=== PATIENT | male | born 1985 | race Caucasian/White ===

== ENCOUNTER 2016-12-10 23:29 | Inpatient (IN) | payer SELFPAY ==
[~2016-12-10] VITALS: Ht 180.3 cm; Wt 80.3 kg
[~2016-12-10 23:29] MED LIST: DOXY100T PO; SULF-154 PO
[2016-12-10 23:32] VITALS: BP 126/82; PULSE 126; RESP 19; TEMP 98.6; O2SAT 87
[2016-12-10] MEDS ORDERED: RESP: ALBUTEROL 2.5 MG/IPRATROPIUM 0.5 MG NEB (SCH) NEB ONE (23:45)
[2016-12-10] MEDS ORDERED: SODIUM CHLOR 0.9% 1000 ML INJ 1,000 ML IV ONE (23:45)
[2016-12-10 23:58] LABS: AUTOMATED NEUTROPHIL # 3.6 TH/MM3 (1.8-7.7); BASOPHIL # 0.1 TH/MM3 (0-0.2); BASOPHIL % 0.9 % (0.0-2.0); EOSINOPHIL # 0.2 TH/MM3 (0-0.4); EOSINOPHIL % 2.7 % (0.0-4.0); HEMO FLAGS DIFF FINAL; LYMPH % 30.2 % (9.0-44.0); LYMPHOCYTE # 1.9 TH/MM3 (1.0-4.8); MEAN CELL VOLUME 85.5 FL (80.0-100.0); MEAN CORPUSCULAR HEMOGLOBIN 29.3 PG (27.0-34.0); MEAN CORPUSCULAR HGB CONC 34.3 % (32.0-36.0); MONO % 9.3 % (0.0-8.0); NEUT % 56.9 % (16.0-70.0); PLATELET COUNT 215 TH/MM3 (150-450); RED BLOOD COUNT 4.91 MIL/MM3 (4.50-5.90); RED CELL DISTRIBUTION WIDTH 13.8 % (11.6-17.2); WHITE BLOOD COUNT 6.4 TH/MM3 (4.0-11.0)
[2016-12-11] VITALS (7 sets, daily range): BP systolic 94–123; BP diastolic 50–74; PULSE 87–121; RESP 16–22; TEMP 98.1–98.8; O2SAT 91–99
--- NOTE | 2016-12-11 | PD ---
HPI Chief Complaint: OD/ Ingestion Time Seen by Provider: 23:33 Travel History International Travel<30 days: No Contact w/Intl Traveler<30days: No Traveled to known affect area: No History of Present Illness HPI This is a 31-year-old male who presents to the emergency department having been found by his unresponsive after he took some sort of blue pill. EMS arrived and the patient had pinpoint pupils. He was being bag mask ventilated. He was given 2 mg of Narcan and then he regained consciousness. Patient denies any illicit substance use. He does have a remote history of IV drug use that he acknowledges. Right now he says he just doesn't feel "right", constant , moderate severity, with no associated shortness of breath or chest pain. PFSH Past Medical History Medical History: Denies Significant Hx Diminished Hearing: No Musculoskeletal: Yes (CHRONIC BACK PAIN) Tetanus Vaccination: Unknown Influenza Vaccination: No Past Surgical History Surgical History: No Previous Surgery Social History Alcohol Use: Yes (OCCASIONALLY) Tobacco Use: Yes (2-3 CIGARETTES A DAY) Substance Use: Yes (PT STATES HE QUIT) Allergies-Medications (Allergen,Severity, Reaction): Coded Allergies: No Known Allergies (Unverified , 12/10/16) Reported Meds & Prescriptions Reported Meds & Active Scripts Active No Active Prescriptions or Reported Medications Review of Systems Except as stated in HPI: all other systems reviewed are Neg Physical Exam Narrative GENERAL:Well appearing, no acute distress SKIN: Focused skin assessment warm and dry. HEAD: Atraumatic. Normocephalic. EYES: Pupils equal and round. No injection or drainage. ENT: Dry mucous membranes. NECK: Trachea midline. CARDIOVASCULAR: Regular rate and rhythm. No murmur appreciated. RESPIRATORY: Diffuse coarse breath sounds with expiratory wheezing, no tachypnea or accessory muscle use. GASTROINTESTINAL: Abdomen soft, non-tender, nondistended. MUSCULOSKELETAL: No obvious deformities. NEUROLOGICAL: Awake and alert. No obvious cranial nerve deficits. Moving all extremities. PSYCHIATRIC: Appropriate mood and affect; insight and judgment normal. Data Data Last Documented VS Vital Signs Date Time Temp Pulse Resp B/P Pulse Ox O2 Delivery O2 Flow Rate FiO2 12/11/16 02:25 121 19 94/50 91 Nasal Cannula 3 12/10/16 23:32 98.6 Orders Complete Blood Count With Diff (12/10/16 23:38) Comprehensive Metabolic Panel (12/10/16 23:38) ^ Insert Iv (12/10/16 23:38) Chest, Single Ap (12/10/16 ) Albuterol-Ipratropium Neb (Duoneb Neb) (12/10/16 23:45) Sodium Chlor 0.9% 1000 Ml Inj (Ns 1000 M (12/10/16 23:45) Acetaminophen (Tylenol) (12/11/16 01:00) Methylprednisolone So Succ Inj (Solumedr (12/11/16 01:30) Albuterol Neb (Albuterol Neb) (12/11/16 01:30) Ampicillin-Sulbactam Inj (Unasyn Inj) (12/11/16 02:45) Admit Order (Ed Use Only) (12/11/16 02:52) Labs Laboratory Tests Test 12/10/16 23:45 White Blood Count 6.4 TH/MM3 Red Blood Count 4.91 MIL/MM3 Hemoglobin 14.4 GM/DL Hematocrit 42.0 % Mean Corpuscular Volume 85.5 FL Mean Corpuscular Hemoglobin 29.3 PG Mean Corpuscular Hemoglobin 34.3 % Concent Red Cell Distribution Width 13.8 % Platelet Count 215 TH/MM3 Mean Platelet Volume 8.3 FL Neutrophils (%) (Auto) 56.9 % Lymphocytes (%) (Auto) 30.2 % Monocytes (%) (Auto) 9.3 % Eosinophils (%) (Auto) 2.7 % Basophils (%) (Auto) 0.9 % Neutrophils # (Auto) 3.6 TH/MM3 Lymphocytes # (Auto) 1.9 TH/MM3 Monocytes # (Auto) 0.6 TH/MM3 Eosinophils # (Auto) 0.2 TH/MM3 Basophils # (Auto) 0.1 TH/MM3 CBC Comment DIFF FINAL Differential Comment Sodium Level 145 MEQ/L Potassium Level 4.0 MEQ/L Chloride Level 109 MEQ/L Carbon Dioxide Level 29.4 MEQ/L Anion Gap 7 MEQ/L Blood Urea Nitrogen 17 MG/DL Creatinine 1.05 MG/DL Estimat Glomerular Filtration 81 ML/MIN Rate Random Glucose 160 MG/DL Calcium Level 7.7 MG/DL Total Bilirubin 0.3 MG/DL Aspartate Amino Transf 77 U/L (AST/SGOT) Alanine Aminotransferase 243 U/L (ALT/SGPT) Alkaline Phosphatase 82 U/L Total Protein 6.7 GM/DL Albumin 3.6 GM/DL MDM Medical Decision Making Medical Screen Exam Complete: Yes Emergency Medical Condition: Yes Interpretation(s) Afebrile, tachycardic, hypoxic No leukocytosis Mild transaminitis Chest x-ray: Bibasilar consolidation Differential Diagnosis Pneumonia, aspiration, electrolyte abnormality, opiate overdose Narrative Course This is a 31-year-old male who presents to the emergency department having likely had an accidental opiate overdose having received bag mask ventilation in the field Narcan. On arrival he was awake and alert but tachycardic and hypoxic. He was given bronchodilator treatments and some steroids in the setting of some wheezing. Chest x-ray demonstrates bibasilar pneumonia. He continued to be hypoxic despite aggressive respiratory management. I suspect the patient had an aspiration event. He'll be admitted to the hospital for close monitoring and antibiotics. Diagnosis Primary Impression: Opiate overdose Qualified Code: T40.601A - Opiate overdose, accidental or unintentional, initial encounter Additional Impression: Pneumonia Qualified Code: J69.0 - Aspiration pneumonia of both lower lobes, unspecified aspiration pneumonia type Admitting Information Admitting Physician Requests: Admit Additional Instructions: If you develop severe chest pain, shortness of breath, sweating, lightheadedness , dizziness or difficulty breathing return to the emergency department immediately. Followup with your primary care physician in 2-3 days if your symptoms are not resolved. Scripts No Active Prescriptions or Reported Meds Isis Amos MD Dec 11, 2016 00:00
[2016-12-11 00:18] LABS: ALT (GPT) 243 U/L (12-78); ANION GAP 7 MEQ/L (5-15); AST (GOT) 77 U/L (15-37); BICARBONATE 29.4 MEQ/L (21.0-32.0); BLOOD UREA NITROGEN 17 MG/DL (7-18); CHLORIDE 109 MEQ/L (98-107); GLOMERULAR FILTRATION RATE 81 ML/MIN (>89); SODIUM (NA) 145 MEQ/L (136-145)
[2016-12-11 00:21] LABS: ALKALINE PHOSPHATASE 82 U/L (45-117); TOTAL BILIRUBIN ADULT 0.3 MG/DL (0.2-1.0)
--- NOTE | 2016-12-11 00:33 | RADRPT ---
EXAM DATE/TIME: 12/10/2016 23:52 [facility] COMPARISON: No previous studies available for comparison. INDICATIONS : Cough. Congestion. MEDICAL HISTORY : None. SURGICAL HISTORY : None. ENCOUNTER: Initial ACUITY: 3 days PAIN SCORE: 6/10 LOCATION: Bilateral chest FINDINGS: The heart size is normal. There is increased density at the left base. There is minimal increased den sity at the right base. CONCLUSION: Bibasilar areas of suspected consolidation being much more prominent on the left. Stefano Martini MD on December 11, 2016 at 0:31 Board Certified Radiologist. This report was verified electronically.
[2016-12-11] MEDS ORDERED: ACETAMINOPHEN 500 MG CPLT PO ONE (01:00)
[2016-12-11] MEDS ORDERED: methylPREDNISolone SOD SUCC 125 MG/2 ML VIAL IV PUSH ONE (01:30)
[2016-12-11] MEDS: RESP: ALBUTEROL 2.5 MG/3 ML NEB (SCH) INH (01:44)
[2016-12-11] MEDS ORDERED: AMPICILLIN-SULBACTAM INJ 3 GM in SODIUM CHLORIDE 0.9% INJ 100 ML IV ONE (02:45)
[2016-12-11] MEDS ORDERED: SODIUM CHLOR 0.9% 1000 ML INJ 1,000 ML IV SCH (02:58)
[2016-12-11] MEDS ORDERED: RESP: ALBUTEROL 2.5 MG/IPRATROPIUM 0.5 MG NEB (PRN) NEB (03:00)
[2016-12-11] MEDS ORDERED: SODIUM CHLORIDE 0.9% FLUSH 10 ML FLUSH IV FLUSH PRN (03:00)
[2016-12-11] MEDS ORDERED: ONDANSETRON HCL 4 MG/2 ML VIAL IVP PRN (03:00)
[2016-12-11] MEDS ORDERED: BISACODYL 10 MG SUPP RECTAL PRN (03:00)
[2016-12-11] MEDS ORDERED: ACETAMINOPHEN 325 MG TAB PO PRN (03:00)
--- NOTE | 2016-12-11 05:19 | HHI.HP ---
HPI Service [facility] Primary Care Physician No Primary Care Physician Admission Diagnosis aspiration pneumonia, opiate overdose Diagnoses: (1) Opiate overdose Diagnosis: Principal (2) PNA (pneumonia) Diagnosis: Principal (3) Hypoxia Diagnosis: Principal (4) Tobacco abuse Diagnosis: Principal Travel History International Travel<30 Days: No Contact w/Intl Traveler <30 Da: No Traveled to Known Affected Are: No History of Present Illness This is a 31-year-old male with a PMH of Tobacco Abuse and h/o Substance Abuse was brought into the ER by EMS after found him unresponsive at home. Per girlfriend pt had taken a drug, "something called blue". Pt denies any ingestion. S/p Narcan 0.2mg by EMS w/ GCS 15. While in ER, pt noted to be hypoxic w/ O2 sat 88-89%on RA despite improved mental status. On arrival, BP 126/82, HR 126, O2 sat 87% on RA, Afebrile. Currently O2 sat 94% on 3L NC. CBC unremarkable. Chemistry with GFR 81. LFTs mildly elevated comparison to previous labs. CXR with bibasilar areas of consolidation. S/p Unasyn in ER. Review of Systems Except as stated in HPI: all other systems reviewed are Neg ROS: 14 point review of systems otherwise negative. Past Family Social History Past Medical History PMH: Tobacco Abuse and h/o Substance Abuse Past Surgical History PAST SURGICAL HISTORY: None Allergies: Coded Allergies: No Known Allergies (Unverified , 12/10/16) Family History PAST FAMILY HISTORY: Reviewed. No h/o DM or CAD Social History PAST SOCIAL HISTORY: Occasional alcohol. Smokes daily. History of substance abuse. Physical Exam Vital Signs Vital Signs Date Time Temp Pulse Resp B/P Pulse Ox O2 Delivery O2 Flow Rate FiO2 12/11/16 04:53 101 19 108/71 94 Nasal Cannula 3 12/11/16 03:30 Nasal Cannula 3.00 12/11/16 02:25 121 19 94/50 91 Nasal Cannula 3 12/10/16 23:39 121 19 93 Nasal Cannula 3 12/10/16 23:32 98.6 126 19 126/82 87 Physical Exam PE: GENERAL: Young, thin white male in no acute distress, mildly diaphoretic/ clammy. Lethargic but rouses easily HEENT: PERRLA, EOMI. No scleral icterus or conjunctival pallor. No lid lag or facial droop. CARDIOVASCULAR: Regular rate and rhythm. No obvious murmurs to auscultation. No chest tenderness to palpation. RESPIRATORY: No obvious rhonchi, occasional wheezing. Clear to auscultation. Breath sounds equal bilaterally. GASTROINTESTINAL: Abdomen soft, non-tender, nondistended. BS normal. MUSCULOSKELETAL: Extremities without clubbing, cyanosis, or edema. No obvious deformities. NEUROLOGICAL: Lethargic but easily rouses. No focal neurologic deficits. Moving both upper and lower extremities spontaneously. Laboratory Laboratory Tests Test 12/10/16 23:45 White Blood Count 6.4 Red Blood Count 4.91 Hemoglobin 14.4 Hematocrit 42.0 Mean Corpuscular Volume 85.5 Mean Corpuscular Hemoglobin 29.3 Mean Corpuscular Hemoglobin 34.3 Concent Red Cell Distribution Width 13.8 Platelet Count 215 Mean Platelet Volume 8.3 Neutrophils (%) (Auto) 56.9 Lymphocytes (%) (Auto) 30.2 Monocytes (%) (Auto) 9.3 Eosinophils (%) (Auto) 2.7 Basophils (%) (Auto) 0.9 Neutrophils # (Auto) 3.6 Lymphocytes # (Auto) 1.9 Monocytes # (Auto) 0.6 Eosinophils # (Auto) 0.2 Basophils # (Auto) 0.1 CBC Comment DIFF FINAL Differential Comment Sodium Level 145 Potassium Level 4.0 Chloride Level 109 Carbon Dioxide Level 29.4 Anion Gap 7 Blood Urea Nitrogen 17 Creatinine 1.05 Estimat Glomerular Filtration 81 Rate Random Glucose 160 Calcium Level 7.7 Total Bilirubin 0.3 Aspartate Amino Transf 77 (AST/SGOT) Alanine Aminotransferase 243 (ALT/SGPT) Alkaline Phosphatase 82 Total Protein 6.7 Albumin 3.6 Result Diagram: 12/10/16234412/10/165 Assessment and Plan Problem List: (1) Opiate overdose ICD Code: T40.601A Status: Acute (2) Tobacco abuse ICD Code: Z72.0 Status: Acute (3) Hypoxia ICD Code: R09.02 Status: Acute (4) PNA (pneumonia) ICD Code: J18.9 Status: Acute Assessment and Plan A/P: 1. Opiate Overdose: Suspected Opiate OD, per girlfriend pt took "something called blue", found unresponsive w/ pin-point pupils, s/p Narcan 0.2mg by EMS, now w/ GCS 15. Seemingly unintentional overdose. Place on telemetry, monitor closely. IVF for hydration. 2. PNA: CXR w/ by bibasilar consolidation, images reviewed by me. S/p Unasyn in ER. Will continue w/ IV Abx, +wheezing, DuoNeb prn, repeat labs in am. 3. Hypoxia: On arrival O2 sat 87% on RA w/ O2 sat 88-89% while in ER, currently 94% on 3L NC, likely combination of PNA and Opiate Overdose. Monitor O2. DuoNeb prn as above. 4. Tobacco Abuse: Counselled. Ativan/NicoDerm prn if needed. 5. DVT Prophylaxis: SCD/Teds. 6. Social work for d/c planning as needed. 7. Case discussed w/ ER physician at length. Physician Certification 2 Midnight Certification Type: Admission for Inpatient Services Order for Inpatient Services The services are ordered in accordance with Medicare regulations or non- Medicare payer requirements, as applicable. In the case of services not specified as inpatient-only, they are appropriately provided as inpatient services in accordance with the 2-midnight benchmark. Estimated LOS (days): 2 days is the estimated time the patient will need to remain in the hospital, assuming treatment plan goals are met and no additional complications. Post-Hospital Plan: Not yet determined Problem Qualifiers (1) Opiate overdose: Qualified Code: T40.601A - Opiate overdose, accidental or unintentional, initial encounter Evonne Burns MD Dec 11, 2016 05:19
[2016-12-11] MEDS ORDERED: PIPERACIL-TAZO 3.375 GM PREMIX 50 ML IV SCH (09:00)
[2016-12-11] MEDS ORDERED: SODIUM CHLORIDE 0.9% FLUSH 10 ML FLUSH IV FLUSH SCH (09:00)
[2016-12-11] MEDS ORDERED: AUGM875T PO (14:03)
[2016-12-11] MEDS ORDERED: METR-1 PO (14:03)
--- NOTE | 2016-12-11 14:04 | HHI.DCPOC ---
Discharge Care Plan Diagnosis: (1) Elevated liver enzymes (2) Aspiration pneumonia Goals to Promote Your Health * To prevent worsening of your condition and complications * To maintain your health at the optimal level Directions to Meet Your Goals Take your medications as prescribed Follow your dietary instruction Follow activity as directed Keep your appointments as scheduled Take your immunizations and boosters as scheduled If your symptoms worsen call your PCP, if no PCP go to Urgent Care Center or Emergency Room Smoking is Dangerous to Your Health. Avoid second hand smoke Call the 24-hour hour crisis hotline for domestic abuse at Pam Peñaloza MD Dec 11, 2016 14:04
--- NOTE | 2016-12-11 14:04 | HHI.DS ---
Discharge Summary Admission Date Dec 11, 2016 at 02:53 Discharge Date: Dec 11, 2016 Admitting Diagnosis aspiration pneumonia, opiate overdose (1) Opiate overdose ICD Code: T40.601A Diagnosis: Principal (2) Hypoxia ICD Code: R09.02 Diagnosis: Principal (3) PNA (pneumonia) ICD Code: J18.9 Diagnosis: Principal (4) Tobacco abuse ICD Code: Z72.0 Diagnosis: Secondary Procedures none Brief History - From Admission This is a 31-year-old male with a PMH of Tobacco Abuse and h/o Substance Abuse was brought into the ER by EMS after found him unresponsive at home. Per girlfriend pt had taken a drug, "something called blue". Pt denies any ingestion. S/p Narcan 0.2mg by EMS w/ GCS 15. While in ER, pt noted to be hypoxic w/ O2 sat 88-89%on RA despite improved mental status. On arrival, BP 126/82, HR 126, O2 sat 87% on RA, Afebrile. Currently O2 sat 94% on 3L NC. CBC unremarkable. Chemistry with GFR 81. LFTs mildly elevated comparison to previous labs. CXR with bibasilar areas of consolidation. S/p Unasyn in ER. CBC/BMP: 12/10/16 2345 12/10/16 2345 Significant Findings Laboratory Tests Test 12/10/16 23:45 Monocytes (%) (Auto) 9.3 % (0.0-8.0) Chloride Level 109 MEQ/L (98-107) Estimat Glomerular Filtration 81 ML/MIN (>89) Rate Random Glucose 160 MG/DL (74-106) Calcium Level 7.7 MG/DL (8.5-10.1) Aspartate Amino Transf 77 U/L (15-37) (AST/SGOT) Alanine Aminotransferase 243 U/L (12-78) (ALT/SGPT) Imaging Last Impressions Chest X-Ray 12/10/16 0000 Signed Impressions: Service Date/Time: Saturday, December 10, 2016 23:52 - CONCLUSION: Bibasilar areas of suspected consolidation being much more prominent on the left. Stefano Martini MD PE at Discharge GENERAL: in NAD SKIN: Warm and dry. HEAD: Normocephalic. EYES: No scleral icterus. No injection or drainage. NECK: Supple, trachea midline. No JVD or lymphadenopathy. CARDIOVASCULAR: Regular rate and rhythm without murmurs, gallops, or rubs. RESPIRATORY: Breath sounds equal bilaterally. No accessory muscle use. GASTROINTESTINAL: Abdomen soft, non-tender, nondistended. Neuro AAO X 3. CN 2-12 intact. motor and sensation grossly intact. coordination intact. no tremors noted. Pt update on day of discharge f/u for opioid overdose and possible aspiration PNA. patient asking to go home. He stated he feels great. Denied any SOB or cough. remains afebrile. he is AAO X 3 and is answering questions appropriately. Hospital Course Opiate Overdose - Suspected Opiate OD, per girlfriend pt took "something called blue", found unresponsive w/ pin-point pupils, s/p Narcan 0.2mg by EMS, now w/ GCS 15. Seemingly unintentional overdose. Place on telemetry, monitor closely. IVF for hydration. - did well and resolved quickly. -education given and patient stated he understands and it will not happen again. he stated the opiate overdose was accidental. denied any suicidal or homicidal ideations. question PNA vs reactive due to aspiration: -CXR w/ by bibasilar consolidation, images reviewed by me. S/p Unasyn in ER. he was put on zosyn, +wheezing, DuoNeb prn, and resolved quickly. -d/c on PO antibiotics. Hypoxia - On arrival O2 sat 87% on RA w/ O2 sat 88-89% while in ER, -most likely due to overdose. resolved quickly and he was weaned off oxygen quickly. Tobacco Abuse -Counselled. Ativan/NicoDerm prn if needed. Pt Condition on Discharge: Good Discharge Disposition: Discharge Home Discharge Time: > 30 minutes Discharge Instructions DIET: Follow Instructions for: As Tolerated, No Restrictions Activities you can perform: Regular-No Restrictions Follow up Referrals: PCP Follow-up - 1 Week New Medications: Amoxicillin-Clavulanate (Augmentin) 875-125 mg Tab 875 MG PO BID not for use in CrCl <30 ml/min. Infection #10 Ref 0 TAB Metronidazole (Flagyl) 500 Mg Tab 500 MG PO TID Infection Days 10 Ref 0 TAB Pam Peñaloza MD Dec 11, 2016 14:04
--- NOTE | 2016-12-11 14:42 | EKG ---
Date Performed: 12/10/2016 Time Performed: 23:35:11 PTAGE: 31 years EKG: SINUS TACHYCARDIA NONSPECIFIC T-WAVE ABNORMALITY Compared to prior tracing no significant c hange ABNORMAL RHYTHM ECG PREVIOUS TRACING : 05/14/2012 11.56 DOCTOR: Jessika Ruggiero Interpretating Date/Time 12/11/2016 14:39:13
== END 2016-12-11 17:45 | disposition home or self-care (01) | DRG 917 ==
LOC: NEPC 23:29 → NEDA 12-11 02:53 → N04A 12-11 05:20
PROVIDERS: ADMIT Family Medicine; ATTEND Family Medicine
DX: T40.0X1A Poisoning by opium, accidental (unintentional), initial encounter (principal); J69.0 Pneumonitis due to inhalation of food and vomit; G89.29 Other chronic pain; R09.02 Hypoxemia; R40.2410 Glasgow coma scale score 13-15, unspecified time; Y92.019 Unspecified place in single-family (private) house as the place of occurrence of the external cause; Z87.891 Personal history of nicotine dependence; Z87.898 Personal history of other specified conditions
CPT/HCPCS: 71010; 80053; 85025; 93005; 94640; 94664; 96374; 96375; J0295; J2543; J2930; J7030; J7613